=== PATIENT | female | born 1970 | race Two or more races ===

== ENCOUNTER → 2016-10-15 | Outpatient (CLI) | payer MEDICARE, OTHER ==
[~2016-10-15] MED LIST: ETAN50IN5; FOLI1TAB6; LISI2.5T47; METH2.5T3; PREDNISONE 5 MG TABLET
[2016-10-15 14:30] LABS: Basophils # (auto) 0 uL; DEFINITIVE VIEW TRANSMISSION; Eosinophils # (auto) 0 uL; Monocytes # (auto) 0.2 uL
[2016-10-15 14:33] LABS: Basophils % (auto) 0.4 % (0.0-2.0); Hematocrit 27.8 % (36.0-46.0); Hemoglobin 8.6 g/dL (12.2-16.2); Lymphocytes # (auto) 0.9 uL; Lymphocytes % (auto) 11.6 % (10.0-50.0); Mean Corpuscular Hemoglobin 19.9 pg (28.0-32.0); Mean Corpuscular Hgb Conc. 30.7 g/dL (32.0-36.0); Mean Corpuscular Volume 64.6 fL (80.0-100.0); Mean Platelet Volume 8.1 fL (7.4-10.4); Monocytes % (auto) 2.8 % (0.0-12.0); Neutrophils # (auto) 6.3 uL; Neutrophils % (auto) 85.2 % (37.0-80.0); Platelet Count (auto) 558 10^3/uL (140-450); Red Cell Distribution Width 17.9 % (11.6-16.0); White Blood Cell 7.4 10^3/uL (4.4-10.8)
[2016-10-15 14:51] LABS: Albumin 3.2 g/dL (3.4-5.0); BUN/Creatinine Ratio 13.3; Bilirubin, Total 0.1 mg/dL (0.2-1.0); Calcium 9.2 mg/dL (8.5-10.1); Potassium 4.6 mmol/L (3.5-5.1); Total Protein 8.3 g/dL (6.4-8.2)
[2016-10-15 17:23] LABS: Hypochromia Marked; Platelet Estimate Increased
[2016-10-15 17:24] LABS: Microcytosis Marked; Ovalocytes MODERATE; Tear Drop Cells FEW
== END | disposition home or self-care (01) ==
LOC: LAB 14:05
DX: M32.10 Systemic lupus erythematosus, organ or system involvement unspecified (principal); M06.9 Rheumatoid arthritis, unspecified; M25.50 Pain in unspecified joint; D64.9 Anemia, unspecified; I10 Essential (primary) hypertension; C18.9 Malignant neoplasm of colon, unspecified
CPT/HCPCS: 36415; 80053; 85025; 85652; 86141